=== PATIENT | male | born 1955 | race Caucasian/White ===

== ENCOUNTER → 2016-05-13 | Outpatient (CLI) | payer OTHER ==
[~2016-05-13] MED LIST: ABILIFY2 MG PO; AMBIEN 10MG10 MG PO; AMBIEN 5MG TABLE5 MG PO; ASPIRIN E.C. 8181 MG PO; EFFEXOR 75M75 MG/TAB PO; EFFEXOR XR150 MG PO; EFFEXOR-XR150 MG PO; FLOMAX 0.40.4 MG/CAP PO; GLUCOPHAGE1000 MG PO; HCTZ 25MG TAB25 MG PO; HYTRIN 2MG CAPSU2 MG PO; IMODIUM 2MG CAPS2 MG PO; KLONOPIN 0.5MG0.5 MG PO; LIPITOR 40MG TA40 MG PO; LIPITOR40 MG PO; LISINOPRIL2.5 MG PO; LOPRESSOR 550 MG/TAB PO; METFORMIN1000 MG PO; METOPROLOL TART50 MG PO; MOTRIN 400400 MG/TAB PO; NIASPAN 500MG500 MG PO; NIASPAN500 MG PO; NITROSTAT0.4 MG/TAB SL; PLAVIX 75MG TAB75 MG PO; PRINCIPEN500 MG PO; PRINIVIL10 MG PO; RANEXA1000 MG PO; SIMETHICONE80 MG PO; TERAZOSIN HCL1 M1 PO; TOPROL XL100 MG PO; TRICOR48 MG PO; TYLENOL 500MG500 MG PO; VITAMIN D32000 IU PO; XANAX0.5 MG PO; ZESTRIL 10MG10 MG PO; ZESTRIL 5MG5 MG PO; ZOLPIDEM TART10 MG PO
== END ==
LOC: COL.PUL 10:58
DX: R06.02 Shortness of breath (principal); G47.8 Other sleep disorders
CPT/HCPCS: J7674

== ENCOUNTER 2016-05-27 13:10 | Outpatient (RCR) | payer OTHER | END 2016-06-22 12:30 | disposition home or self-care (01) | LOC: COL.CR 13:10 | DX: Z48.812 Encounter for surgical aftercare following surgery on the circulatory system (principal); Z95.818 Presence of other cardiac implants and grafts ==

== ENCOUNTER → 2016-06-01 | Outpatient (CLI) | payer OTHER | LOC: COL.VAS 08:43 | DX: I07.1 Rheumatic tricuspid insufficiency (principal); R94.39 Abnormal result of other cardiovascular function study; R06.02 Shortness of breath ==